=== PATIENT | male | born 1960 | race Asian ===

== ENCOUNTER 2022-10-05 01:51 | Outpatient (CLI) | payer OTHER | END 2022-10-05 23:59 | disposition critical access hospital (66) | LOC: EMS 01:51 | DX: R55 Syncope and collapse (principal); R06.89 Other abnormalities of breathing; R41.82 Altered mental status, unspecified; R45.89 Other symptoms and signs involving emotional state; R04.0 Epistaxis; W18.39XA Other fall on same level, initial encounter; Y93.01 Activity, walking, marching and hiking; Y92.009 Unspecified place in unspecified non-institutional (private) residence as the place of occurrence of the external cause | CPT/HCPCS: A0425; A0429 ==

== ENCOUNTER 2022-10-05 02:02 | Emergency (ER) | payer BC, OTHER ==
--- NOTE | 2022-10-05 02:03 | ED Physician Documentation ---
PD HPI HEAD INJURY - Stated complaint Stated Complaint: FELL, HIT HEAD, UNRESPONSIVE, IRRATIONAL - History obtained from History obtained from: Patient, Family, EMS - Additional information Additional information: Brought in by ambulance. HPI is via combination from patient, EMS, and family. Patient recalls that he was in bed at home at approximately 1 AM when he woke up and got out of bed to use the bathroom. He has some recollection of feeling lightheaded, but then he next recalls being on the floor and being attended to by EMS. Patient's says she was in bed asleep at that time, waking due to the noise associated with the patient falling to ground. She found the patient on the floor next to the bed, face down, unconscious and not responding and thus she called 911. EMS arrived to find the patient facedown on the floor with his head propped up on the edge of a piece of furniture (thus his back was in extension). EMS says patient was not responding to verbal stimuli, minimally to painful stimuli. He was nonverbal and not following any commands. However, without specific intervention, during assessment in the field as well as on route to the emergency department, patient gradually but steadily exhibited improving level of consciousness and mentation, and, by the time he arrived to the emergency department, he is AAOx3 and in NAD. On my HPI, patient denies having any pain anywhere. He denies chest pain, headache, extremity pain, abdominal pain. Review of Systems Constitutional: denies: Fever Cardiac: reports: Reviewed and negative Respiratory: reports: Reviewed and negative GI: reports: Reviewed and negative : reports: Incontinent Musculoskeletal: reports: Reviewed and negative Neurologic: reports: Syncope, LOC. denies: Focal weakness, Numbness, Difficulty speaking, Seizure, Headache PD PAST MEDICAL HISTORY - Past Medical History Past Medical History: Yes Cardiovascular: Hypertension, High cholesterol - Present Medications Home Medications: Ambulatory Orders Medication Instructions Recorded Confirmed Atorvastatin Calcium [Lipitor] 10 mg PO QPM 09/06/13 02/10/14 lisinopriL [Prinivil] 10 mg PO QDBREAKFAST 09/06/13 02/10/14 Lidocaine Patch 5% [Lidoderm Patch] 1 patch TOP DAILY PRN #10 patch 10/05/22 Oxycodone HCl/Acetaminophen 1 each PO Q6H PRN #10 tablet 10/05/22 [Percocet 5-325 mg Tablet] - Allergies Allergies/Adverse Reactions: Allergies Allergy/AdvReac Type Severity Reaction Status Date / Time No Known Drug Allergies Allergy Verified 09/06/13 13:24 - Living Situation Living Situation: reports: With spouse/s.o. Living Arrangement: reports: At home PD ED PE NORMAL - Vitals Vital signs reviewed: Yes - General General: Alert and oriented X 3, No acute distress, Well developed/nourished - HEENT HEENT: Atraumatic, PERRL, EOMI, Moist mucous membranes, Other (dried blood anterior left nare without active bleeding. 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, No motor deficit, No sensory deficit, Normal speech Eye Opening: Spontaneous Motor: Obeys Commands Verbal: Oriented GCS Score: 15 - Psych Psych: Normal mood, Normal affect Results - Vitals Vitals: Vital Signs - 24 hr 10/05/22 10/05/22 10/05/22 02:08 02:40 02:48 Temperature 36.9 C Heart Rate 90 85 88 Respiratory 24 13 20 Rate Blood Pressure 133/70 H 129/74 129/74 O2 Saturation 98 98 98 10/05/22 10/05/22 10/05/22 03:18 03:48 04:00 Temperature Heart Rate 98 93 98 Respiratory 20 15 20 Rate Blood Pressure 144/81 H 142/71 H 141/77 H O2 Saturation 97 96 99 10/05/22 10/05/22 10/05/22 04:30 05:00 05:30 Temperature Heart Rate 97 99 105 H Respiratory 20 16 16 Rate Blood Pressure 131/80 H 128/78 129/79 O2 Saturation 97 96 97 10/05/22 10/05/22 10/05/22 06:00 06:30 07:00 Temperature Heart Rate 106 H 105 H 100 Respiratory 15 18 14 Rate Blood Pressure 136/76 H 126/71 123/68 O2 Saturation 97 94 95 10/05/22 10/05/22 10/05/22 07:30 08:00 08:30 Temperature Heart Rate 100 99 99 Respiratory 18 13 14 Rate Blood Pressure 122/76 120/66 127/68 O2 Saturation 96 96 95 10/05/22 10/05/22 10/05/22 09:00 09:30 10:00 Temperature Heart Rate 97 94 94 Respiratory 18 16 16 Rate Blood Pressure 118/65 122/67 122/67 O2 Saturation 94 94 94 10/05/22 10/05/22 10/05/22 10:30 12:00 14:13 Temperature 36.9 C 36.7 C Heart Rate 92 92 91 Respiratory 14 14 15 Rate Blood Pressure 124/70 127/73 122/67 O2 Saturation 97 96 93 10/05/22 10/05/22 14:56 16:00 Temperature Heart Rate 85 85 Respiratory 16 10 L Rate Blood Pressure 122/76 139/84 H O2 Saturation 90 L 97 Oxygen O2 Source Room air - EKG (time done) No standard instances EKG releavant findings:: EKG personally interpreted by author of this note. Relevant findings are: Rate: Rate (enter#) (87) Rhythm: NSR [place]: Normal Intervals: Normal OR QRS: Normal Ischemia: Normal ST segments, Q waves (isolated QIII) - Labs Labs: Laboratory Tests 10/05/22 10/05/22 10/05/22 02:19 02:19 02:19 WBC 8.3 RBC 5.08 Hgb 15.4 Hct 47.0 MCV 92.5 MCH 30.3 MCHC 32.8 RDW 12.4 Plt Count 341 MPV 9.0 Neut # (Auto) 3.9 Lymph # (Auto) 3.5 [place] # (Auto) 0.5 Eos # (Auto) 0.2 Baso # (Auto) 0.1 Absolute Nucleated RBC 0.00 Nucleated RBC % 0.0 Sodium 139 Potassium 4.0 Chloride 103 Carbon Dioxide 23 Anion Gap 13.0 BUN 14 Creatinine 1.0 Estimated GFR (MDRD) 76 L Glucose 129 H Calcium 8.8 Total Bilirubin 0.5 AST 24 ALT 25 Alkaline Phosphatase 59 Troponin I High Sens Total Protein 7.4 Albumin 4.0 Globulin 3.4 Albumin/Globulin Ratio 1.2 Lipase 43 TSH 3.41 Urine Color Urine Clarity Urine pH Ur Specific [place] Urine Protein Urine Glucose (UA) Urine Ketones Urine Occult Blood Urine Nitrite Urine Bilirubin Urine Urobilinogen Ur Leukocyte Esterase Ur Microscopic Review Urine Culture Comments Ethyl Alcohol < 5.0 10/05/22 10/05/22 02:19 07:15 WBC RBC Hgb Hct MCV MCH MCHC RDW Plt Count MPV Neut # (Auto) Lymph # (Auto) [place] # (Auto) Eos # (Auto) Baso # (Auto) Absolute Nucleated RBC Nucleated RBC % Sodium Potassium Chloride Carbon Dioxide Anion Gap BUN Creatinine Estimated GFR (MDRD) Glucose Calcium Total Bilirubin AST ALT Alkaline Phosphatase Troponin I High Sens 3.4 Total Protein Albumin Globulin Albumin/Globulin Ratio Lipase TSH Urine Color YELLOW Urine Clarity CLEAR Urine pH 8.0 H Ur Specific [place] <=1.005 Urine Protein NEGATIVE Urine Glucose (UA) NEGATIVE Urine Ketones NEGATIVE Urine Occult Blood NEGATIVE Urine Nitrite NEGATIVE Urine Bilirubin NEGATIVE Urine Urobilinogen 0.2 (NORMAL) Ur Leukocyte Esterase NEGATIVE Ur Microscopic Review NOT INDICATED Urine Culture Comments NOT INDICATED Ethyl Alcohol - Rads (name of study) chest xray Relevant Findings:: Prelim report reviewed, See rad report CTH Relevant Findings:: Prelim report reviewed, See rad report CT cervical spine Relevant Findings:: Prelim report reviewed, See rad report CTA head Relevant Findings:: Prelim report reviewed, See rad report CTA neck Relevant Findings:: Prelim report reviewed, See rad report right shoulder xray Relevant Findings:: Prelim report reviewed, EMP independent interpretation of test (these images were reviewed by me and I do not see any abnormality: specifically, no fracture, no dislocation), See rad report PD Medical Decision Making - ED course Complexity details: reviewed results, re-evaluated patient, considered differential, d/w patient, d/w family ED course: Patient presents with what sounds like a syncopal episode that occurred when he got up to use the bathroom tonight. There was no witnessed seizure activity. The patient did seem to have an unusual amount of time pass from onset of the event until he had returned to his baseline. For much of his ER stay, he denied having any pain anywhere. On one of the many reexaminations that I performed, he then said that he noticed that his right arm felt "heavy". I had him raise his right arm and he seemed to have difficulty doing so, appearing to be having painful discomfort with the effort. However, he insisted he was not having any pain. I lifted the arm for him and ask him to keep it steady, and there was a slow drift of the right arm towards the bed. He had no drift with the left upper extremity nor either of his bilateral lower extremities. CVA seems like a particularly unusual explanation for syncopal episode from which he has completely recovered only then to notice that he has isolated right arm heaviness. However, to help further assess this situation, I then ordered CTA of the head and CTA of the neck.There is no stenosis on the CTA of the neck of the right common carotid artery, and there is a less than 50% stenosis of the left common carotid artery. The CTA of the head shows wide patency of the intracranial arterial circulation. 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 M RI/MRV with contrast may be of further diagnostic value." I contacted the radiologist for clarification regarding this finding. He opines that the most likely explanation is anatomic variation, but that he mentions MR as a means of looking into the unlikely possibility of cavernous sinus thrombosis. MR is in-house as of 07:00. At that time, I note that the only order available in [place] that is relevant to this study is without contrast. Thus, I again contacted radiology, and the upshot of this conversation was that the MRV of the brain without contrast should be an adequate study for the diagnosis in question. The study is pending at the end of my shift, and thus care of patient is turned over to oncoming ED physician (Dr. Norton) Departure - Departure Disposition: 01 Home, Self Care Clinical Impression: Syncope, Right shoulder injury Condition: Stable Instructions: ED Fainting Unkn Cause, ED Shoulder Pain UKO Prescriptions: Lidocaine Patch 5% [Lidoderm Patch] 1 patch TOP DAILY PRN #10 patch PRN Reason: pain Oxycodone HCl/Acetaminophen [Percocet 5-325 mg Tablet] 1 each PO Q6H PRN #10 tablet PRN Reason: pain Comments: You were evaluated after a Syncopal episode.It is unclear as to why you may have had this episode but your work-up today is reassuring. Your labs do not show any significant abnormalities.You had a CT scan that was done which showed an irregularity but upon further testing this appears to be a normal anatomic variant. Your MRI does not show signs of a stroke. You do have an injury to your right shoulder but your x-ray does not show a broken or out of place bone. I would recommend close follow-up with your primary care doctor. I have sent a small amount of narcotic pain medication to [facility] in [place]. Please use caution when taking this medication as it can make you feel dizzy or lightheaded. Please make sure you are staying hydrated over the weekend and getting plenty of rest. If you develop any new or worsening symptoms please consider return to the ER. We have given you a sling to use for your right shoulder pain. Please make sure to remove the sling several times a day to range of motion your arm and make sure you are keeping the joint loose. I am prescribing a short course of narcotic pain medication for you. These are potentially dangerous and addictive medications that should be used carefully. These medications may constipate you. Take an jrlr-wef-bwgascy stool softener (docusate) twice daily with plenty of water while taking these medications. If you go 24 hours without a bowel movement, take jugm-dju-cospdhv miralax, per package instructions. Do not drink or drive while taking these medications. If you received narcotic or sedating medications while in the emergency department, do not drive for 24 hours. Store this medication in a safe, secure place and out of reach of children. It is a violation of federal law to give or sell this medication to another person or to use in a manner other than prescribed. The ED will not refill narcotic prescriptions, including prescriptions lost or stolen. To dispose of unwanted medications: 1. [facility] at [address] in [place] has a medication drop box. They accept prescription medications (in pill form) Saturday through Saturday 9:00 a.m. to 5:00 p.m. 2. The [facility] at [place] [employer] accepts prescription medications (in pill form only) for disposal year round. Call for more information. 3. Contact the [facility] for the next [facility] sponsored prescription drug collection event. , [phone], or [phone]; Note that many narcotic pain relievers also contain Tylenol/acetaminophen. Please ensure that your total dose of acetaminophen from all sources does not exceed 3 g (3000 mg) per day. Discharge Date/Time: 10/05/22 16:59
[2022-10-05 02:25] LABS: BASOPHILS # (AUTO) 0.1 10^3/uL (0.0-0.1); BASOPHILS % (AUTO) 0.6 %; EOSINOPHILS # (AUTO) 0.2 10^3/uL (0.0-0.7); EOSINOPHILS % (AUTO) 2.5 %; HGB - HEMOGLOBIN 15.4 g/dL (14.0-18.0); LYMPHOCYTES # (AUTO) 3.5 10^3/uL (1.5-3.5); LYMPHOCYTES % (AUTO) 42.9 %; MEAN CORPUSCULAR HEMOGLOBIN 30.3 pg (27.0-31.0); MEAN CORPUSCULAR HGB CONC 32.8 g/dL (32.0-36.0); MEAN CORPUSCULAR VOLUME 92.5 fL (80.0-94.0); MONOCYTES # (AUTO) 0.5 10^3/uL (0.0-1.0); MONOCYTES % (AUTO) 6.3 %; NEUTROPHILS # (AUTO) 3.9 10^3/uL (1.5-6.6); NEUTROPHILS % (AUTO) 47.1 %; PLT - PLATELET COUNT 341 10^3/uL (130-450); RED BLOOD COUNT 5.08 10^6/uL (4.70-6.10); RED CELL DISTRIBUTION WIDTH 12.4 % (12.0-15.0); WHITE BLOOD COUNT 8.3 x10^3/uL (4.8-10.8)
[2022-10-05 02:40] LABS: ALBUMIN/GLOBULIN RATIO 1.2 (1.0-2.2); ALKALINE PHOSPHATASE 59 IU/L (42-121); ALT ALANINE AMINOTRANSFERASE 25 IU/L (10-60); AST ASPARTATE AMINOTRANSFERASE 24 IU/L (10-42); BILIRUBIN,TOTAL 0.5 mg/dL (0.2-1.0); BUN - BLOOD UREA NITROGEN 14 mg/dL (6-20); CALCIUM 8.8 mg/dL (8.5-10.3); CARBON DIOXIDE - CO2 23 mmol/L (21-32); CHLORIDE 103 mmol/L (101-111); ETOH - ETHANOL < 5.0 mg/dL; GFR - MDRD 76 (>89); GLUCOSE 129 mg/dL (70-100); LIPASE 43 U/L (22-51); SODIUM 139 mmol/L (135-145); TOTAL PROTEIN 7.4 g/dL (6.7-8.2)
[2022-10-05] MEDS ORDERED: iohexoL-300 100 ML VIAL ONE (03:18)
[2022-10-05] MEDS ORDERED: iohexoL-300 100 ML VIAL IVP ONE (03:48)
--- NOTE | 2022-10-05 07:56 | CT Report ---
PROCEDURE: HEAD WO INDICATIONS: syncope/LOC, head injury TECHNIQUE: Noncontrast 4.5 mm thick angled axial sections acquired from the foramen magnum to the vertex. For r adiation dose reduction, the following was used: automated exposure control, adjustment of mA and/or kV according to patient size. COMPARISON: None. FINDINGS: Image quality: Excellent. CSF spaces: Basal cisterns are patent. No extra-axial fluid collections. Ventricles are normal in size and shape. Brain: No midline shift. No intracranial masses or hemorrhage. Prominent calcifications in globus p allidus bilaterally. Lewis-white matter interface is normal. Skull and face: Calvarium and visualized facial bones are intact, without suspicious lesions. Sinuses: Pansinusitis bilaterally. The mastoids are clear. IMPRESSION: 1. No acute intracranial abnormality. 2. 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 3. Bilateral pansinusitis. No significant discrepancy with the preliminary interpretation. Reviewed by: Sadaf Kaiser MD on 10/05/2022 7:55 AM PDT Approved by: Sadaf Kaiser MD on 10/05/2022 7:55 AM PDT Station ID: [id number]
--- NOTE | 2022-10-05 07:58 | XRAY Report ---
PROCEDURE: Chest 1 View X-Ray INDICATIONS: syncope TECHNIQUE: One view of the chest was acquired. COMPARISON: Chest x-ray, 02/10/2014. FINDINGS: Surgical changes and devices: None. Lungs and pleura: No pleural effusions or pneumothorax. Lungs are clear. Mediastinum: Mediastinal contours appear normal. Heart size is normal. Bones and chest wall: No suspicious bony lesions. Overlying soft tissues appear unremarkable. IMPRESSION: No acute cardiopulmonary disease. No significant discrepancy with the preliminary interpretation. Reviewed by: Sadaf Kaiser MD on 10/05/2022 7:56 AM PDT Approved by: Sadaf Kaiser MD on 10/05/2022 7:56 AM PDT Station ID: [id number]
--- NOTE | 2022-10-05 07:59 | XRAY Report ---
PROCEDURE: Shoulder 3 View RT INDICATIONS: right shoulder pain TECHNIQUE: 3 views of the shoulder were acquired. COMPARISON: None. FINDINGS: Bones: No fractures or dislocations. No suspicious bony lesions. Mild degenerative joint disease. Visualized ribs appear intact. Soft tissues: No suspicious soft tissue calcifications. IMPRESSION: 1. No acute osseous abnormality. 2. Mild degenerative joint disease. No significant discrepancy with the preliminary interpretation. Reviewed by: Sadaf Kaiser MD on 10/05/2022 7:57 AM PDT Approved by: Sadaf Kaiser MD on 10/05/2022 7:57 AM PDT Station ID: [id number]
[2022-10-05 08:03] LABS: BILIRUBIN,URINE NEGATIVE (NEGATIVE); GLUCOSE, URINE (UA) NEGATIVE (NEGATIVE); KETONES,URINE (UA) NEGATIVE (NEGATIVE); LEUKOCYTE ESTERASE, URINE NEGATIVE (NEGATIVE); NITRITE,URINE NEGATIVE (NEGATIVE); OCCULT BLOOD,URINE NEGATIVE (NEGATIVE); PROTEIN,URINE NEGATIVE (NEGATIVE); UROBILINOGEN,URINE 0.2 (NORMAL) E.U./dL (NORMAL)
[2022-10-05 08:06] LABS: CLARITY,URINE CLEAR (CLEAR)
[2022-10-05] MEDS ORDERED: ACETAMINOPHEN 325 MG TABLET PO STA ×2 (08:21→13:22)
--- NOTE | 2022-10-05 08:52 | CT Report ---
PROCEDURE: ANGIO HEAD W/WO INDICATIONS: syncope, weakness CONTRAST: 80mL Omni 300 TECHNIQUE: Precontrast 4.5 mm thick angled axial sections acquired from the foramen magnum to the vertex. Afte r the administration of intravenous contrast, 1 mm thick sections acquired through the [place] of [place] is. Postcontrast 4.5 mm thick sections then re-acquired from the foramen magnum to the vertex. 3-di mensional fhtlndg-cgmvthpzg-poauiwocrm (MIP) and/or volume rendering reformats were acquired of the c entral intracranial vasculature. For radiation dose reduction, the following was used: automated ex posure control, adjustment of mA and/or kV according to patient size. COMPARISON: CT head without, 10/05/2022. FINDINGS: Image quality: Excellent. Anterior circulation: Intracranial internal carotid arteries are normal in size and flow. Calcified plaques at the cavernous segment of the internal carotid arteries bilaterally. The flow within the p aired anterior cerebral arteries is normal and symmetric. The flow within the middle cerebral arteri es is normal and symmetric. The anterior communicating artery is seen. No aneurysms are seen. Posterior circulation: Visualized portions of the vertebral arteries demonstrate normal caliber, and join to form a normal appearing basilar artery. Flow within the posterior cerebral arteries is norm al and symmetric. No aneurysms are seen. 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 CSF spaces: Ventricles are normal in size and shape. Basal cisterns are patent. No extra-axial flu id collections. Brain: No midline shift. No intracranial bleeds or masses. Lewis-white matter interface appears int act. Skull and face: Calvarium and facial bones appear intact, without suspicious lesions. Sinuses: Visualized sinuses and mastoids are clear. IMPRESSION: 1. Patent anterior and posterior circulations. 2. Ossified plaques in the cavernous segment of the internal carotid arteries bilaterally. 3. No acute intracranial abnormality. 4. 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 If there is cl inical suspicion for venous thrombosis, MR cerebral venogram can be obtained for further evaluation. 5. Bilateral paranasal sinusitis. No significant discrepancy with the preliminary interpretation. Reviewed by: Sadaf Kaiser MD on 10/05/2022 8:51 AM PDT Approved by: Sadaf Kaiser MD on 10/05/2022 8:51 AM PDT Station ID: [id number]
--- NOTE | 2022-10-05 08:55 | CT Report ---
PROCEDURE: CERVICAL SPINE WO INDICATIONS: syncope TECHNIQUE: Noncontrast 3 mm thick sections acquired from the skull base to the T4 level. Sagittal and coronal r eformats were then constructed. For radiation dose reduction, the following was used: automated exp osure control, adjustment of mA and/or kV according to patient size. COMPARISON: None. FINDINGS: Image quality: Excellent. Bones: No fractures or dislocations. The degenerative disc disease. Visualized superior ribs are int act. Severe mucosal thickening in ethmoid sinuses bilaterally. Soft tissues: Prevertebral soft tissues are normal in thickness. No paravertebral hematomas. No ap ical pneumothoraces. IMPRESSION: 1. No acute cervical spine fracture. 2. Degenerative disc disease. 3. Sinusitis. No significant discrepancy with the preliminary interpretation. Reviewed by: Sadaf Kaiser MD on 10/05/2022 8:53 AM PDT Approved by: Sadaf Kaiser MD on 10/05/2022 8:53 AM PDT Station ID: [id number]
--- NOTE | 2022-10-05 09:00 | CT Report ---
PROCEDURE: ANGIO NECK W INDICATIONS: syncope, weakness CONTRAST: 80mL Omni 300 TECHNIQUE: After the administration of intravenous contrast, 1.5 mm axial sections acquired from the aortic arch to the [place] of [place]. Coronal 3-D maximum intensity projection (MIP) and/or volume rendering ref ormats were then performed. For radiation dose reduction, the following was used: automated exposur e control, adjustment of mA and/or kV according to patient size. COMPARISON: CTA head, 10/05/2022. FINDINGS: Image quality: Excellent. Carotid system: The great vessels demonstrate a conventional anatomy as they arise from the aortic a rch. The origins of the common carotid arteries appear patent. The common carotid arteries demonstr ate normal calibers and courses. There are calcified plaques at the carotid bifurcations bilaterally. Bifurcation regions appear patent. There is approximately 40-50% stenosis in the left internal carot id artery just distal to the bifurcation. The internal carotid arteries demonstrate normal caliber a nd course. Posterior circulation: The origins of the vertebral arteries appear patent. The more superior porti ons of the vertebral arteries demonstrate normal course and caliber. They join to form a normal appe aring basilar artery. Soft tissues: Visualized neck soft tissues demonstrate no suspicious abnormalities. The thyroid is normal in size and there are no incidental findings. Bones: No suspicious bony lesions. Visualized cervical spine appears normally aligned. IMPRESSION: 1. 40-50% stenosis of the proximal left internal carotid artery. 2. No high-grade stenosis in right carotid arteries. 3. Patient vertebral arteries bilaterally without significant stenosis. The estimate of stenosis included in the report of the imaging study was calculated using the NASCET method CLINICAL RECOMMENDATION STATEMENTS: In patients <35 years with an ITN detected on CT, MRI, or extrathyroidal ultrasound, the Committee re commends further evaluation with dedicated thyroid ultrasound if the nodule is "e1 cm and has no susp icious imaging features, and if the patient has normal life expectancy. In patients "e35 years with an ITN detected on CT, MRI, or extrathyroidal ultrasound, the Committee r ecommends further evaluation with dedicated thyroid ultrasound if the nodule is "e1.5 cm and has no s uspicious imaging features, and if the patient has normal life expectancy. (ACR, 2014) Reviewed by: Sadaf Kaiser MD on 10/05/2022 8:59 AM PDT Approved by: Sadaf Kaiser MD on 10/05/2022 8:59 AM [facility] Station ID: [id number]
[2022-10-05] MEDS ORDERED: oxyCODONE 5 MG TABLET PO STA (09:49)
[2022-10-05] MEDS ORDERED: LIDOCAINE PATCH 5% TOP STA (09:49)
--- NOTE | 2022-10-05 11:56 | ED Physician Documentation ---
ED Addendum - Addendum Addendum: Patient signed out to me by overnight physician to follow-up on MRI. Patient reports having continued pain to his right shoulder this morning.No deformity seen on exam. X-ray was reviewed I do not see a fracture or dislocation. Lidoderm patch wasApplied to the area.We will order for a sling. MRI is pending. MRV was ordered by Dr. Eaton for evaluation of sinus anomaly seen on CT scan to evaluate for cavernous sinus thrombosis. Patient does not have headache or abnormal neuro findings. 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 No evidence of acute thrombosis. Brain MRI with and without intravenous contrast may be helpful for further assessment. The MR V was not helpful in determining whether this was a congenital variant or not so radiologist had recommended a brain MRI with and without contrast which was also obtained. MRI IMPRESSION: Asymmetric transverse sinuses, which are considered to be within physiologic limits. No findings of thrombosis or filling defects can be seen. Additional findings: Left cerebellar developmental venous anomaly. Patient appears to have An anatomic variant,No evidence of a sinus thrombosis. He is feeling well here. His shoulder has been reexamined and I do not see evidence of a dislocation. Patient was placed into a splint. He was counseled on need for close follow-up with his PCP.He is advised on concerning symptoms to return for. Family members have also been at bedside throughout the day and updated regarding imaging results and prior work-up. Departure - Departure Disposition: 01 Home, Self Care Clinical Impression: Syncope, Right shoulder injury Condition: Stable Instructions: ED Fainting Unkn Cause, ED Shoulder Pain [facility] Prescriptions: Lidocaine Patch 5% [Lidoderm Patch] 1 patch TOP DAILY PRN #10 patch PRN Reason: pain Oxycodone HCl/Acetaminophen [Percocet 5-325 mg Tablet] 1 each PO Q6H PRN #10 tablet PRN Reason: pain Comments: You were evaluated after a Syncopal episode.It is unclear as to why you may have had this episode but your work-up today is reassuring. Your labs do not show any significant abnormalities.You had a CT scan that was done which showed an irregularity but upon further testing this appears to be a normal anatomic variant. Your MRI does not show signs of a stroke. You do have an injury to your right shoulder but your x-ray does not show a broken or out of place bone. I would recommend close follow-up with your primary care doctor. I have sent a small amount of narcotic pain medication to [facility] in [place]. Please use caution when taking this medication as it can make you feel dizzy or lightheaded. Please make sure you are staying hydrated over the weekend and getting plenty of rest. If you develop any new or worsening symptoms please consider return to the ER. We have given you a sling to use for your right shoulder pain. Please make sure to remove the sling several times a day to range of motion your arm and make sure you are keeping the joint loose. I am prescribing a short course of narcotic pain medication for you. These are potentially dangerous and addictive medications that should be used carefully. These medications may constipate you. Take an fhwa-kuj-wlbvmqg stool softener (docusate) twice daily with plenty of water while taking these medications. If you go 24 hours without a bowel movement, take kreo-xnv-sgfqbnb miralax, per package instructions. Do not drink or drive while taking these medications. If you received narcotic or sedating medications while in the emergency department, do not drive for 24 hours. Store this medication in a safe, secure place and out of reach of children. It is a violation of federal law to give or sell this medication to another person or to use in a manner other than prescribed. The ED will not refill narcotic prescriptions, including prescriptions lost or stolen. To dispose of unwanted medications: 1. [facility] at [address] in [place] has a medication drop box. They accept prescription medications (in pill form) Saturday through Saturday 9:00 a.m. to 5:00 p.m. 2. [facility] [employer] [facility] accepts prescription medications (in pill form only) for disposal year round. Call for more information. 3. Contact the [facility] for the next [facility] sponsored prescription drug collection event. , [phone], or [phone]; Note that many narcotic pain relievers also contain Tylenol/acetaminophen. Please ensure that your total dose of acetaminophen from all sources does not exceed 3 g (3000 mg) per day. Discharge Date/Time: 10/05/22 16:59
--- NOTE | 2022-10-05 12:42 | MRI Report ---
PROCEDURE: MRV BRAIN VENOUS WO INDICATIONS: abnormal CTA, left transverse sinus abnormality TECHNIQUE: Sagittal T1 spin echo through the brain. Coronal 2D qgcf-sp-lnygux MR venogram, with 3-dimensional m irqqbw-jtqbzrodj-fdatqsqomi (MIP) reformats of the intracranial veins then performed. COMPARISON: Head CT and CTA examinations dated 10/05/2022 FINDINGS: Image quality: Excellent. Veins: Sagittal, straight, right transverse, and sigmoid sinuses all appear patent. There is no sig nificant filling of the left transverse sinus. Brain: Limited images through the brain parenchyma show no intracranial bleeds or mass effects. 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 No evidence of acute thrombosis. Brain MRI with and without intravenous contrast may be helpful fo r further assessment. Reviewed by: Mary Dumont MD on 10/05/2022 12:40 PM PDT Approved by: Mary Dumont MD on 10/05/2022 12:40 PM PDT Station ID: [id number]
[2022-10-05] MEDS ORDERED: GADOBUTROL 10 MMOL/10 ML VIAL ONE (13:41)
[2022-10-05] MEDS ORDERED: GADOBUTROL 10 MMOL/10 ML VIAL IVP ONE (15:45)
--- NOTE | 2022-10-05 16:24 | MRI Report ---
PROCEDURE: BRAIN W/WO INDICATIONS: abnormal MRV CONTRAST: GADAVIST 7.7ML TECHNIQUE: Noncontrast axial T1 spin echo, axial T2 fast spin echo, sagittal and axial FLAIR, coronal T2 fast sp in echo, axial gradient echo, axial diffusion and ADC through the brain. After the administration of contrast, axial and coronal T1 spin echo with fat saturation through the brain. COMPARISON: Correlation is made with the accompanying MR venogram, 10/05/2022. FINDINGS: Image quality: Excellent. CSF spaces: Basal cisterns are patent. No extra-axial fluid collections. Ventricles are normal in size and shape. Brain: In this patient with this given history, scrutiny is given to the transverse sinuses. The tra nsverse sinuses are asymmetric, with the left side hypoplastic and the right side somewhat large. On these images, no filling defects or abnormal T1-weighted hyperintensity can be seen to suggest thromb osis. Incidental note is made of a left cerebellar developmental venous anomaly, as on series 17 image 135. No midline shift. No intracranial bleeds or masses. No abnormal intracranial enhancement. There is cerebral volume loss for age. There is periventricular white matter chronic small vessel ischemic c hange. The brainstem appears normal. Diffusion-weighted images demonstrate no acute ischemic insult s. No chronic ischemic insults. Normal intravascular flow voids are present. Symmetric calcification of the basal ganglia can be seen, which is considered to be within normal vizcarra its for age. Skull and face: Calvarial marrow is normal in signal. Orbits appear normal. Sinuses: There is moderate mucosal thickening seen within the maxillary sinuses, left worse than rig ht. Moderate mucosal thickening is also seen of the ethmoid air cells. No significant abnormal fluid can be seen within the mastoid air cells. IMPRESSION: Asymmetric transverse sinuses, which are considered to be within physiologic limits. No findings of thrombosis or filling defects can be seen. Additional findings: Left cerebellar developmental venous anomaly. Reviewed by: Luis Silverio MD on 10/05/2022 3:23 PM JOY Approved by: Luis Silverio MD on 10/05/2022 3:23 PM JOY Station ID: [id number]
[2022-10-05 16:31] VITALS: BP 139/84
== END 2022-10-05 16:59 | disposition home or self-care (01) ==
LOC: EDUNIT# → ED 02:02
DX: S49.91XA Unspecified injury of right shoulder and upper arm, initial encounter (principal); W18.30XA Fall on same level, unspecified, initial encounter; R55 Syncope and collapse; I10 Essential (primary) hypertension
CPT/HCPCS: 36415; 70450; 70496; 70498; 70544; 70553; 71045; 72125; 73030; 80053; 80320; 81003; 83690; 84443; 84484; 85025; 93005; 99284; A9270; A9585; Q9967; 81001; 87086